=== PATIENT | female | born 1965 | race Caucasian/White ===

== ENCOUNTER 2018-05-22 19:26 | Emergency (ER) | payer OTHER ==
[~2018-05-22] VITALS: Ht 165.1 cm; Wt 99.8 kg
== END 2018-05-22 23:41 | disposition home or self-care (01) ==
LOC: ER 19:26
DX: I10 Essential (primary) hypertension (principal)

== ENCOUNTER 2019-07-01 09:35 | Emergency (ER) | payer OTHER ==
[~2019-07-01] VITALS: Ht 165.1 cm; Wt 102.1 kg
[2019-07-01] MEDS ORDERED: COZAAR25 MG PO (10:20)
== END 2019-07-01 13:22 | disposition home or self-care (01) ==
LOC: ER 09:35
DX: G89.11 Acute pain due to trauma (principal); G44.89 Other headache syndrome

== ENCOUNTER 2019-10-21 15:06 | Emergency (ER) | payer OTHER ==
[~2019-10-21] VITALS: Ht 165.1 cm; Wt 99.8 kg
[~2019-10-21 15:06] MED LIST: COZAAR25 MG PO
[2019-10-21] MEDS ORDERED: XANAX XR0.5 MG PO (18:56)
== END 2019-10-21 19:29 | disposition home or self-care (01) ==
LOC: ER 15:06
DX: R00.2 Palpitations (principal); R06.02 Shortness of breath; F06.4 Anxiety disorder due to known physiological condition

== ENCOUNTER 2020-08-10 16:22 | Emergency (ER) | payer OTHER ==
[~2020-08-10] VITALS: Ht 165.1 cm; Wt 99.8 kg
[~2020-08-10 16:22] MED LIST changes: +XANAX XR0.5 MG PO
== END 2020-08-10 21:16 | disposition home or self-care (01) ==
LOC: ER 16:22
DX: R10.32 Left lower quadrant pain (principal)

== ENCOUNTER 2020-10-25 09:10 | Emergency (ER) | payer OTHER ==
[~2020-10-25] VITALS: Ht 165.1 cm; Wt 99.8 kg
[2020-10-25] MEDS ORDERED: LEVO-T25 MCG PO (09:19)
== END 2020-10-25 14:00 | disposition home or self-care (01) ==
LOC: ER 09:10
DX: T88.6XXA Anaphylactic reaction due to adverse effect of correct drug or medicament properly administered, initial encounter (principal); T50.8X5A Adverse effect of diagnostic agents, initial encounter; Y92.89 Other specified places as the place of occurrence of the external cause

== ENCOUNTER 2020-11-20 15:34 | Emergency (ER) | payer OTHER ==
[~2020-11-20] VITALS: Ht 165.1 cm; Wt 99.8 kg
[~2020-11-20 15:34] MED LIST changes: +LEVO-T25 MCG PO
== END 2020-11-20 22:28 | disposition home or self-care (01) ==
LOC: ER 15:34
DX: R06.02 Shortness of breath (principal); T50.Z95A Adverse effect of other vaccines and biological substances, initial encounter; Y92.89 Other specified places as the place of occurrence of the external cause

== ENCOUNTER 2021-05-24 11:31 | Emergency (ER) | payer OTHER ==
[~2021-05-24] VITALS: Ht 165.1 cm; Wt 106.6 kg
== END 2021-05-24 14:28 | disposition home or self-care (01) ==
LOC: ER 11:31
DX: J02.9 Acute pharyngitis, unspecified (principal)

== ENCOUNTER 2024-01-07 10:20 | Emergency (ER) | payer OTHER ==
[~2024-01-07] VITALS: Ht 165.1 cm; Wt 106.6 kg
[2024-01-07] MEDS ORDERED: XARELTO10 M1 PO (10:38)
== END 2024-01-07 12:12 | disposition home or self-care (01) ==
LOC: ER 10:20
DX: S83.203A Other tear of unspecified meniscus, current injury, right knee, initial encounter (principal); Z91.041 Radiographic dye allergy status; Z88.6 Allergy status to analgesic agent